=== PATIENT | female | born 1940 | race Caucasian/White ===

== ENCOUNTER 2016-09-07 17:19 | Emergency (ER) | payer OTHER ==
[~2016-09-07] VITALS: Ht 162.6 cm; Wt 64.0 kg
[~2016-09-07 17:19] MED LIST: BACL10TA PO; CELE200C; CEPH-443 PO; DIPH25CA6 PO; FAMO-95 PO; MECL-77 PO; PRED10TA PO; glibenclamida PO
[2016-09-07 17:23] VITALS: Ht 162.6 cm; Wt 64.0 kg
[2016-09-07] MEDS ORDERED: ONDANSETRON (ODT) 4 MG TAB ODT STA (19:01)
[2016-09-07] MEDS ORDERED: HYDROmorphONE 1 MG/ML SYG IM STA (19:01)
[2016-09-07] MEDS ORDERED: HYDR-905 PO (19:30)
[2016-09-07] MEDS ORDERED: GABA400C PO (19:30)
--- NOTE | 2016-09-07 19:34 | ERD ---
ER Documentation Chief Complaint Date/Time DATE: 09/07/16 TIME: 19:32 Chief Complaint B/L LEG PAIN X 1 DAY WITH NAUSEA , NO TRAUMA HPI This is 75-year-old who has diabetes and is complaining of 4-5 days of burning bilateral leg pain right more than left the left leg is hurting from the knees to the feet and the right leg is burning from the buttocks to the feet. She says the pain is much worse at night. She states she has had it gradually getting worse but is gotten really worse over the past 4 days. No numbness no weakness no swelling or redness in the legs. She says the pain keeps her up at night describes as a very hot burning sensation no rash ROS All systems reviewed and are negative except as per history of present illness. Medications Home Meds Active Scripts Hydrocodone/Acetaminophen ([place] 7.5-325 Tablet) 1 Each Tablet, 1 EACH PO every 4-6 h for PAIN, #30 TAB Prov:CEDRIC CRAIG DO 09/07/16 Gabapentin* (Neurontin*) 400 Mg Capsule, 400 MG PO TID, #90 CAP Prov:CEDRIC CRAIG DO 09/07/16 Prednisone (Prednisone) 10 Mg Tab, 10 MG PO as directed, #30 TAB Prov:LUZ MARIA STODDARD MD 12/10/14 Diphenhydramine Hcl* (Diphenhydramine Hcl*) 25 Mg Capsule, 25 MG PO Q6 Y for ALLERGIC REACTION, #60 CAP Prov:LUZ MAIRA STODDARD MD 12/10/14 Cephalexin* (Keflex*) 500 Mg Capsule, 500 MG PO BID, #10 CAP Prov:LUZ MARIA STODDARD MD 12/10/14 Famotidine* (Pepcid* AC) 20 Mg Tab, 20 MG PO DAILY, #30 TAB Prov:LUZ MARIA STODDARD MD 12/10/14 Reported Medications [glibenclamida] No Conflict Check, 5 MG PO DAILY Y for ELEVATED GLUCOSE 12/07/14 Meclizine Hcl* (Meclizine Hcl*) 25 Mg Tablet, 25 MG PO Y for dizziness, TAB 12/07/14 Celecoxib* (Celebrex*) 200 Mg Capsule, 200 MG DAILY, CAP 12/07/14 Baclofen* (Baclofen*) 10 Mg Tablet, 10 MG PO TID, TAB 12/07/14 Allergies Allergies: Coded Allergies: levofloxacin (Verified Allergy, Unknown, RASH, 12/10/14) PMhx/Soc History of Surgery: No Anesthesia Reaction: No Hx Neurological Disorder: No Hx Respiratory Disorders: No Hx Cardiac Disorders: No Hx Psychiatric Problems: No Hx Miscellaneous Medical Probl: No Hx Alcohol Use: No Hx Substance Use: No Hx Tobacco Use: No FmHx Family History: No coronary disease Physical Exam Vitals Vital Signs Date Time Temp Pulse Resp B/P Pulse Ox O2 Delivery O2 Flow Rate FiO2 09/07/16 17:23 98.1 89 18 134/71 98 Physical Exam Const: [Well-developed, well-nourished] Head: [Atraumatic, normocephalic] Eyes: [Normal Conjunctiva, PERRLA, EOMI, normal sclera, no nystagmus] ENT: [Normal External Ears, Nose and Mouth, moist mucus membranes.] Neck: [Full range of motion. No meningismus, no lymphadenopathy.] Resp: [Clear to auscultation bilaterally, no wheezing, rhonchi, rales] Cardio: [Regular rate and rhythm, no murmurs, S1 S2 present] Abd: [Soft, non tender x 4, non distended. Normal bowel sounds, no guarding or rebound, no pulsitile abdominal masses or bruits] Skin: [No petechiae or rashes, no ecchymosis , no maculopapular rash] Back: [No midline or flank tenderness] Ext: [No cyanosis, or edema, FROM x 4, normal inspection, neurovascularly intact x 4] Neur: [Awake and alert, STR 5/5 x 4, sensation intact x 4, no focal findings, cerebellum intact, burning sensation to both legs as described above. Negative straight leg test] Psych: [Normal Mood and Affect] Results 24 hrs Current Medications Medications (Trade) Dose Ordered Sig/Adrianne Route PRN Reason Start Time Stop Time Status Last Admin Dose Admin Hydromorphone HCl (Dilaudid) 0.5 mg ONCE STAT IM 09/07/16 19:01 09/07/16 19:02 DC 09/07/16 19:07 Ondansetron HCl (Zofran Odt) 4 mg ONCE STAT ODT 09/07/16 19:01 09/07/16 19:02 DC 09/07/16 19:07 Procedures/MDM Patient has neuropathy. Patient is taking gabapentin 300 mg twice a day. I will increase her dose to 400 3 times daily and provide her with some [place] Departure Diagnosis: Primary Impression: Neuropathy Condition: Stable Patient Instructions: Neuropathy, Peripheral CEDRIC CRAIG DO Sep 07, 2016 19:34
[2016-09-07 19:59] VITALS: BP 143/67; PULSE 80; RESP 16; TEMP 98
== END 2016-09-07 20:01 | disposition home or self-care (01) ==
LOC: FTE 17:19
DX: G62.9 Polyneuropathy, unspecified (principal); R11.0 Nausea; E11.9 Type 2 diabetes mellitus without complications
CPT/HCPCS: 96372; J1170; Z7502; Z7610